=== PATIENT | female | born 1985 | race Caucasian/White ===

== ENCOUNTER → 2022-01-06 | Outpatient (CLI) | payer OTHER | LOC: KOH-I 10:04 | DX: M79.672 Pain in left foot (principal) | CPT/HCPCS: 73610; 73630 ==

== ENCOUNTER 2022-04-22 15:26 | Emergency (ER) | payer OTHER | END 2022-04-22 19:00 | disposition left against medical advice (07) | LOC: ER1 15:26 | DX: R07.81 Pleurodynia (principal); M54.9 Dorsalgia, unspecified; G89.29 Other chronic pain; E11.9 Type 2 diabetes mellitus without complications; F17.210 Nicotine dependence, cigarettes, uncomplicated; Z88.0 Allergy status to penicillin | CPT/HCPCS: 71101; 93005; 99283 ==